=== PATIENT | male | born 1935 | race Caucasian/White ===

== ENCOUNTER 2016-07-06 19:36 | Inpatient (IN) | payer MEDICARE, BC ==
[2016-07-06] MEDS ORDERED: ZYLOPRIM100 M1 PO (20:16)
[2016-07-06] MEDS ORDERED: ASPIRIN EC81 MG PO (20:17)
[2016-07-06] MEDS ORDERED: CYMBALTA60 M1 PO (20:18)
[2016-07-06] MEDS ORDERED: KLOR-CON M1010 ME1 PO (20:19)
[2016-07-06] MEDS ORDERED: LOPRESSOR100 M1 PO (20:20)
[2016-07-06] MEDS ORDERED: MIRALAX17 G2 PO (20:22)
[2016-07-06] MEDS ORDERED: OMEPRAZOLE40 M2 PO (20:23)
[2016-07-06] MEDS ORDERED: PRESERVISION A1 EAC5 PO (20:23)
[2016-07-06] MEDS ORDERED: TRAVATAN Z5 M1 RIGHT EYE (20:24)
[2016-07-06] MEDS ORDERED: MAXZIDE 37.5 M1 EAC1 PO (20:25)
[2016-07-06] MEDS ORDERED: TYLENOL325 M2 PO (20:25)
[2016-07-07 00:09] LABS: INR 1.2 INR (0.9-1.1)
[2016-07-07 04:36] LABS: BASO % 0.4 % (0-2); EOS % 3.5 % (0-7); EOSINOPHIL ABSOLUTE COUNT 0.3 tho/cmm (0.0-0.7); HCT-HEMATOCRIT 39.3 % (36.0-53.5); HGB-HEMOGLOBIN 13.2 gm/dl (13.5-17.0); LYMPH % 28.9 % (20-45); LYMPH ABSOLUTE COUNT 2.1 tho/cmm (0.8-4.5); MCH (MEAN CORPUSCULAR HGB) 30.9 pg (28.0-32.0); MCHC MEAN CORPUSCULAR HGB CONC 33.6 % (32.0-36.0); MONO % 8.5 % (0-12); MONOCYTE ABSOLUTE COUNT 0.6 tho/cmm (0.0-1.2); NEUTROPHIL ABSOLUTE COUNT 4.2 tho/cmm (1.6-8.0); NEUTROPHIL-AUTOMATED 4.2 tho/cmm (1.6-8.0); NEUTROPHILS % 58.7 % (40-80); PLATELET COUNT 167 tho/cmm (150-450); RED BLOOD COUNT 4.27 mil/cmm (4.40-5.70); RED CELL DISTRIBUTION WIDTH 13.6 % (12.4-16.4); WHITE BLOOD COUNT 7.2 tho/cmm (4.0-10.0)
[2016-07-07 04:38] LABS: IMMATURE GRANULOCYTES ABSOLUTE 0.01 tho/cmm (0-0.03); IMMATURE GRANULOCYTES PERCENT 0.1 % (0-0.3)
[2016-07-07 04:41] LABS: ALCOHOL (ETOH) <10 mg/dl (<10); BLOOD UREA NITROGEN 27 mg/dl (6-24); C-REACTIVE PROTEIN 0.4 mg/dl (0-0.9); CALCIUM 8.8 mg/dl (8.5-10.5); CARBON DIOXIDE-VENOUS 33 mmol/L (22-32); CHLORIDE 106 mmol/l (96-110); CHOLESTEROL 155 mg/dl (120-200); CREATININE 1.53 mg/dl (0.60-1.30); GLUCOSE 109 mg/dL (70-110); HDL CHOLESTEROL 41 mg/dl (40-60); LDL CHOLESTEROL 93 mg/dl (0-99); SODIUM 143 mmol/L (135-145); TRIGLYCERIDES 108 mg/dl (<149); VLDL 22 mg/dl (0-30); eGFR VALUE FOR BLACK 48 mL/Min
[2016-07-07 04:45] LABS: TSH-THYROID STIMULATING HORM. 0.79 uIU/ml (0.40-3.80)
[2016-07-07 04:49] LABS: ANION GAP 8 mmol/L (0-20); MAGNESIUM 2.3 mg/dl (1.3-2.6); POTASSIUM 3.8 mmol/L (3.7-5.1)
[2016-07-07 05:58] LABS: ESR-ERYTHROCYTE SED RATE 10 mm/hr (0-20)
[2016-07-07] MEDS ORDERED: LIPITOR20 M1 PO (15:23)
[2016-07-07] MEDS ORDERED: ELIQUIS5 M1 PO (15:26)
== END 2016-07-07 16:30 | DRG 309 ==
LOC: 5EB 19:36
PROVIDERS: Internal Medicine Cardiovascular Disease; ADMIT Hospitalist
PROC: 5A09357 Assistance with Respiratory Ventilation, Less than 24 Consecutive Hours, Continuous Positive Airway Pressure (ICD-10-PCS; principal; 2016-07-06)
DX: I48.91 Unspecified atrial fibrillation (principal); N17.9 Acute kidney failure, unspecified; G45.9 Transient cerebral ischemic attack, unspecified; I08.2 Rheumatic disorders of both aortic and tricuspid valves; I13.10 Hypertensive heart and chronic kidney disease without heart failure, with stage 1 through stage 4 chronic kidney disease, or unspecified chronic kidney disease; N18.9 Chronic kidney disease, unspecified; M21.372 Foot drop, left foot; G47.33 Obstructive sleep apnea (adult) (pediatric); M10.9 Gout, unspecified; N40.0 Benign prostatic hyperplasia without lower urinary tract symptoms; M19.90 Unspecified osteoarthritis, unspecified site; I95.1 Orthostatic hypotension; Z96.651 Presence of right artificial knee joint; Z79.82 Long term (current) use of aspirin; E87.6 Hypokalemia; Z88.0 Allergy status to penicillin; H35.30 Unspecified macular degeneration
CPT/HCPCS: A9577; G0480

== ENCOUNTER 2016-07-08 00:22 | Inpatient (IN) | payer MEDICARE, BC ==
[~2016-07-08 00:22] MED LIST: ASPIRIN EC81 MG PO; CYMBALTA60 M1 PO; ELIQUIS5 M1 PO; KLOR-CON M1010 ME1 PO; LIPITOR20 M1 PO; LOPRESSOR100 M1 PO; MAXZIDE 37.5 M1 EAC1 PO; MIRALAX17 G2 PO; OMEPRAZOLE40 M2 PO; PRESERVISION A1 EAC5 PO; TRAVATAN Z5 M1 RIGHT EYE; TYLENOL325 M2 PO; ZYLOPRIM100 M1 PO
[2016-07-08 06:02] LABS: BASO % 0.3 % (0-2); EOS % 2.4 % (0-7); EOSINOPHIL ABSOLUTE COUNT 0.2 tho/cmm (0.0-0.7); HCT-HEMATOCRIT 38.3 % (36.0-53.5); HGB-HEMOGLOBIN 13.1 gm/dl (13.5-17.0); IMMATURE GRANULOCYTES ABSOLUTE 0.01 tho/cmm (0-0.03); IMMATURE GRANULOCYTES PERCENT 0.2 % (0-0.3); LYMPH % 23.2 % (20-45); LYMPH ABSOLUTE COUNT 1.5 tho/cmm (0.8-4.5); MCH (MEAN CORPUSCULAR HGB) 31.4 pg (28.0-32.0); MCHC MEAN CORPUSCULAR HGB CONC 34.2 % (32.0-36.0); MCV (MEAN CELL VOLUME) 91.8 fl (82.0-96.0); MEAN PLATELET VOLUME 10.3 cmc (9.4-12.4); MONO % 10.2 % (0-12); MONOCYTE ABSOLUTE COUNT 0.7 tho/cmm (0.0-1.2); NEUTROPHIL ABSOLUTE COUNT 4.2 tho/cmm (1.6-8.0); NEUTROPHIL-AUTOMATED 4.2 tho/cmm (1.6-8.0); NEUTROPHILS % 63.7 % (40-80); PLATELET COUNT 159 tho/cmm (150-450); RED BLOOD COUNT 4.17 mil/cmm (4.40-5.70); RED CELL DISTRIBUTION WIDTH 13.6 % (12.4-16.4); WHITE BLOOD COUNT 6.6 tho/cmm (4.0-10.0)
[2016-07-08 06:05] LABS: INR 1.3 INR (0.9-1.1); PROTHROMBIN TIME 15.7 SECONDS (9.0-13.6)
[2016-07-08 06:15] LABS: ANION GAP 8 mmol/L (0-20); BLOOD UREA NITROGEN 27 mg/dl (6-24); CARBON DIOXIDE-VENOUS 30 mmol/L (22-32); CHLORIDE 108 mmol/l (96-110); CREATININE 1.44 mg/dl (0.60-1.30); GLUCOSE 124 mg/dL (70-110); POTASSIUM 3.4 mmol/L (3.7-5.1); SODIUM 143 mmol/L (135-145); eGFR VALUE FOR BLACK 52 mL/Min
[2016-07-09 05:18] LABS: ANION GAP 11 mmol/L (0-20); BLOOD UREA NITROGEN 21 mg/dl (6-24); CALCIUM 8.7 mg/dl (8.5-10.5); CARBON DIOXIDE-VENOUS 27 mmol/L (22-32); CHLORIDE 107 mmol/l (96-110); CHOLESTEROL 131 mg/dl (120-200); CREATININE 1.31 mg/dl (0.60-1.30); GLUCOSE 104 mg/dL (70-110); HDL CHOLESTEROL 39 mg/dl (40-60); LDL CHOLESTEROL 74 mg/dl (0-99); POTASSIUM 3.2 mmol/L (3.7-5.1); SODIUM 142 mmol/L (135-145); TRIGLYCERIDES 91 mg/dl (<149); VLDL 18 mg/dl (0-30); eGFR VALUE FOR BLACK 58 mL/Min
[2016-07-09] MEDS ORDERED: ASPIRIN EC81 MG PO (11:13)
== END 2016-07-09 13:00 | DRG 65 ==
LOC: 5EB 00:22
PROVIDERS: Registered Nurse; ADMIT Hospitalist
DX: I63.9 Cerebral infarction, unspecified (principal); G81.94 Hemiplegia, unspecified affecting left nondominant side; N17.9 Acute kidney failure, unspecified; I48.91 Unspecified atrial fibrillation; R47.81 Slurred speech; M21.372 Foot drop, left foot; G47.33 Obstructive sleep apnea (adult) (pediatric); I10 Essential (primary) hypertension; N40.0 Benign prostatic hyperplasia without lower urinary tract symptoms; M10.9 Gout, unspecified; H35.30 Unspecified macular degeneration; N52.9 Male erectile dysfunction, unspecified; E87.6 Hypokalemia; K21.9 Gastro-esophageal reflux disease without esophagitis; Z87.891 Personal history of nicotine dependence; Z79.01 Long term (current) use of anticoagulants; Z79.82 Long term (current) use of aspirin
CPT/HCPCS: A9577; G8978-GP-CJ; G8979-GP-CI; G8987-GO-CJ; G8988-GO-CI; G8989-GO-CI; J7030